=== PATIENT | male | born 1965 | race Caucasian/White ===

== ENCOUNTER 2020-05-18 10:20 | Day surgery (SDC) | payer OTHER, SELFPAY ==
--- NOTE | 2020-05-15 09:11 | EKG12_ITS ---
Test Reason : PREOP Blood Pressure : / mmHG Vent. Rate : 074 BPM Atrial Rate : 074 BPM P-R Int : 222 ms QRS Dur : 094 ms QT Int : 366 ms P-R-T Axes : 031 039 044 degrees QTc Int : 406 ms Sinus rhythm with 1st degree A-V block Otherwise normal ECG Confirmed by HUMBERTO ROACH, LINDA ([id number]), editorial project manager KSENIA XIAO ([id number]) on 05/19/2020 9:28:02 AM Referred By: Marcello Stevenson Confirmed By:LINDA PAUL MD
[2020-05-15 10:43] LABS: Hematocrit 46.6 % (40-54); Hemoglobin 15.7 g/dL (13.0-16.5); Mean Corp Hgb Conc 33.7 g/dL (32-36); Mean Corpuscular Hgb 31.8 pg (27.0-32.0); Mean Corpuscular Volume 94.5 fL (80-94); Mean Platelet Vol. 10.4 fl (6.2-12.0); Platelet Count 199 K/mm3 (150-450); RBC Distribution Width CV 11.9 % (11.6-14.6); RBC Distribution Width SD 41.1 fl (35.1-43.9); Red Blood Count 4.93 M/mm3 (4.6-6.2); White Blood Count 5.8 K/mm3 (4.4-11.0)
[2020-05-15 11:31] LABS: Anion Gap 4 (5-15); BUN 19 mg/dL (7-18); BUN/Creat Ratio 20.7 RATIO (10-20); Calcium,Total 9.1 mg/dL (8.5-10.1); Chloride 100 mmol/L (98-107); Creatinine, Serum 0.92 mg/dL (0.70-1.30); EST Glomerular Filtration Rate 92 mL/min (>60); Est Glom Filt Rate - Afr Amer 111 mL/min (>60); Glucose 127 mg/dL (74-106); Potassium 4.4 mmol/L (3.5-5.1); Sodium Level 134 mmol/L (136-145)
--- NOTE | 2020-05-18 10:09 | HP_ITS ---
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 Is patient in pain?: Yes Allergies No Known Allergies Allergy (Verified 05/13/20 09:44) Medications amlodipine 5 mg tablet 5 mg PO DAILY tab 05/13/20 [History Confirmed 05/13/20] aspirin 81 mg tablet,delayed release 81 mg PO DAILY 05/13/20 [History Confirmed 05/13/20] evolocumab 140 mg/mL subcutaneous syringe 140 mg SC ml 05/13/20 [History Confirmed 05/13/20] hydrochlorothiazide 25 mg tablet 25 mg PO DAILY tab 05/13/20 [History Confirmed 05/13/20] lisinopril 40 mg tablet 40 mg PO DAILY tab 05/13/20 [History Confirmed 05/13/20] [facility] Medical History (Updated 05/13/20 @ 09:48 by Radha Lin) CAD (coronary artery disease) (Acute) Hyperlipidemia (Acute) Back pain (Acute) Osteoarthritis (Acute) Myocardial infarction (Acute) HTN (hypertension) (Chronic) Hemorrhoids (Acute) GERD (gastroesophageal reflux disease) (Acute) Surgical History (Updated 05/13/20 @ 09:48 by Radha Lin) History of decompression of ulnar nerve (Acute) History of discectomy (Acute) History of vasectomy (Acute) History of colonoscopy (Acute ~2019) History of fusion of cervical spine (Acute) Hx of heart artery stent (Acute) Family History (Updated 05/13/20 @ 09:43 by Radha Lin) Father Heart disease Mother Colon cancer Social History (Updated 05/13/20 @ 10:[address] Marcello Stevenson MD) Smoking Status: Former smoker HPI HPI HPI: MERRILL IBARRA, is a 55 M who presents to the office today for HPI HPI Surgical H&P: Yes HPI: MERRILL IBARRA, is a 55 M who presents to the office today for Left groin swelling. Patient notes that he has been having a lot of left groin swelling over the past month. He said sometimes it is so painful to stand up that he has to sit down for 5 minutes. The swelling does disappear with laying down. He does not have any vomiting but he has been having nausea due to this. Pain does radiate into his left testicle ROS General General: Yes weight change; no appetite, fatigue, colon cancer, breast cancer or weakness HEENT HEENT: No difficulty swallowing, eye injury, eye surgery, swollen glands or hoarseness Endo Endocrine: No thyroid disease, diabetes mellitus, thyroid cancer, Hair loss, heat intolerance or cold intolerance Musc Musculoskeletal: Yes back problems and arthritis; no rheumatoid arthritis, gout or joint pain Cardio Cardiovascular: Yes heart disease, high blood pressure, heart attack and heart stent; no murmur, pacemaker, atrial fibrillation, palpitations, shortness of breat with exertion or chest pain Psych Psychiatric: No depression, anxiety or hearing voices Resp Respiratory: No shortness of breath, No sleep apnea, No cough, No COPD, No asthma, No emphysema, No wheezing Gastro Gastrointestinal: Yes abdominal pain, Yes nausea or vomiting, No diarrhea, No constipation, No blood in stool, Yes acid reflux, Yes hemorrhoids, No ulcers, No gallbladder problem, No black,tarry stools Mark Hematologic: No blood thinners, No blood disorders, No bleeding, No anemia, No blood clots Neuro Neurologic: No weakness Exam Const General: cooperative Orientation: alert, oriented x3 [facility] Head: normal to inspection Ears: hearing grossly normal bilaterally Eyes General: appearance normal, both eyes and all related structures Visual Montemayor: normal visual montemayor by confrontation Neck Neck: normal visual inspection Chest Chest palpation & inspection: normal inspection of the chest Resp Effort & Inspection: normal respiratory effort Auscultation: clear to auscultation bilaterally Cardio Rate: regular rate Rhythm: regular rhythm Heart Sounds: no murmurs GI Inspection: non-distended Palpation: soft, hernia indirect inguinal bilaterally, nontender Musc Cervical Spine: normal cervical lordosis, cervical ROM normal Skin General: no rashes or lesions noted Neuro General: alert, oriented x3 Cranial Nerves: CN's II-XI intact bilaterally Cognition: normal cognition Extrem General: normal to inspection, full ROM Psych Appearance: grossly normal Affect: normal affect Assessment & Plan Problems 1. Bilateral inguinal hernia without obstruction or gangrene, recurrence not specified K40.20 Plan The patient has a CT scan which reveals bilateral inguinal hernias with left larger than right. The patient is only symptomatic on the left but he would like the right repaired. I discussed open and robotic assisted laparoscopic inguinal hernia repair with mesh. I discussed repairing the left side first by repairing the symptomatic right side as well. I also discussed conversion to open procedure of laparoscopic was not possible due to his weight. I explained the risks including not limited to bleeding, infection, injury to spermatic cord or bowel, chronic groin pain and mesh placement. The patient understands the risks and is willing to proceed as soon as possible. We discussed the current risks associated with COVID-19. While it is understood that there is a community spread of COVID-19, the risk of baljinder COVID-19 while at [facility] ([facility]) is very low; however, the risk cannot be completely mitigated because of the community spread of the disease. We discussed in detail the risk of exposure to and/or potential harm posed by the COVID-19 virus with having a surgery/procedure at this time versus the risk of delaying the surgery/procedure. It is not possible to know either the risk of delaying the surgery or procedure or chance of getting an infection with perfect accuracy, but a joint decision was made to proceed at this time with the scheduled surgery/procedure as indicated on the consent form. Patient was notified that we will need to comply with any screening or testing [facility] wishes to perform or that surgery may be delayed for any positive results. Marcello Stevenson MD Pager: [facility] [address] [place] [address], [address] [place] [address] Office: Coding Level of Care Code Off vis,new,level 4 Diagnoses Bilateral inguinal hernia without obstruction or gangrene, recurrence not specified K40.20 ??Obstruction and gangrene presence: without obstruction or gangrene ??Recurrence: not specified as recurrent Time Spent (min) 45 I have re-examined the patient. There are no clinical changes since date of exam.
[2020-05-18 11:19] VITALS: BP 156/92; PULSE 87; RESP 16; TEMP 37.4; O2SAT 97; BMI 47.2
[2020-05-18] MEDS: Lactated Ringers 1,000 ML 75 ML IV (11:20)
[2020-05-18] MEDS: Cefazolin 2 GM in 0.9% Normal Saline 100 ML IV (11:41)
[2020-05-18] MEDS: Bupivacaine Mpf 0.5% 30 ML VIAL (14:00)
--- NOTE | 2020-05-18 14:18 | PCM.OPRPT ---
Problem List (1) Bilateral inguinal hernia Status: Acute Qualifiers: Obstruction and gangrene presence: without obstruction or gangrene Recurrence: non-recurrent Qualified Code(s): K40.20 - Bilateral inguinal hernia, without obstruction or gangrene, not specified as recurrent Report of Operation Date of Procedure: 05/18/20 Pre-Operative Diagnosis: Bilateral inguinal hernia Post-Operative Diagnosis: Same Surgery/Procedure Performed:: Robotic assisted laparoscopic bilateral inguinal hernia repair with mesh Description of Surgical Findings:: Patient had retroperitoneal fat in bilateral inguinal hernias Description of Procedure: Patient was brought back to the operating room and general anesthesia was induced. The abdomen was prepped and draped in usual sterile fashion. An incision was made the midline and Veress needle was placed into the abdomen and a drop test was performed. The abdomen was insufflated to 15 mmHg. The camera port was placed through the midline incision and the camera was placed in the abdomen and it was inspected. The patient had bilateral inguinal hernias. Next under direct visualization a right 8 mm port was placed in a left 8 mm port was placed. The robot was then docked and the patient was placed in steep Trendelenburg position. The left inguinal hernia was addressed first. The peritoneum was scored and the dissection was carried inferiorly using cautery scissors. The hernia sac was reduced and then the retroperitoneal contents in the inguinal canal were reduced. This took a long time and there were a lot of retroperitoneal contents in the inguinal canal. Once these were dissected free a progrip mesh was placed in the left inguinal canal and unfolded covering the inguinal canal fully. The peritoneum was reapproximated using a running 3-0V lock suture completely covering the mesh. Next on the right side in the same fashion the peritoneum was scored and dissected inferiorly until the hernia sac was identified. There was also retroperitoneal contents in the right inguinal hernia which were reduced. The progrip mesh was then placed over the right inguinal region and unfolded. This covered the hernia defect. The peritoneum was reapproximated using running 3-0V lock suture. The mesh was completely covered with peritoneum. Both inguinal regions were inspected and then the camera was removed and the robot was undocked. The ports were removed and the air was allowed to desufflate from the abdomen. The scrotum was checked and contain both testicles. The skin was then anesthetized and closed with interrupted 4-0 Monocryl sutures. Steri-Strips and bandages were applied. The patient was awoken and taken to PACU in stable condition. Grafts/Implants Used: Progrip mesh x2 - Admit VTE Documentation VTE Mechan Device Prophylaxis: SCD's
--- NOTE | 2020-05-18 14:24 | DCINST_ITS ---
Discharge Diet: Light diet - advance as tolerated Discharge Activity: Return to Normal Activity, May Not Drive - for 2-3 days or while taking narcotic pain meds., May Shower - with the bandage in place 1-2 days after surgery. Lifting Restrictions: 20 pounds for 6 weeks. Additional Activity Instructions:: Climbing stairs is fine, walking is encouraged. Sitting in bed may be uncomfortable. Sitting up using your lateral muscles (sitting up sideways) is usually more comfortable. Do not drive, work heavy equipment of sign legal documents for 24 hours. If your hernia repair was an ingunial repair, you may have scrotal swelling, an ice pack and/or athletic support can provide more comfort. Pain medications may cause nausea, you should typically eat light foods as you take your pain medications. Pain medications may also cause constipation. If you have difficulty with this, discuss with your doctor. Call your doctor if your incision/area has: Continuous Slow Oozing, Sudden Increased Bleeding, Increased Pain/ Swelling, Increased Redness, Foul Smelling Discharge Call your doctor if you observe: Fever of 101 or Higher Suture Line Care: Avoid Pulling/Pushing, Avoid Pinching/Bending Change Dressing in (Days):: 3 - Leave steri-strips for 1 week. May protect with a guaze bandaid. Cleanse incision/area with: Keep Dressing Clean & Dry Allergies/Adverse Reactions: Allergies No Known Allergies Allergy (Verified 05/18/20 11:15) Medications to take at Discharge amlodipine 5 mg tablet 5 mg PO DAILY tab 05/13/20 aspirin 81 mg tablet,delayed release 81 mg PO DAILY 05/13/20 evolocumab 140 mg/mL subcutaneous syringe 140 mg SC .[id number] ml 05/13/20 hydrochlorothiazide 25 mg tablet 25 mg PO DAILY tab 05/13/20 lisinopril 40 mg tablet 40 mg PO DAILY tab 05/13/20 Oxycodone HCl/Acetaminophen [Percocet 5-325 mg Tablet] 1 - 2 tab PO Q6H PRN PRN 5 Days #20 tablet 05/18/20 The following prescriptions were given: Oxycodone HCl/Acetaminophen [Percocet 5-325 mg Tablet] 1 - 2 tab PO Q6H PRN PRN 5 Days #20 tablet PRN Reason: Pain Score 4-10/10 Transmission Status: Sent to [facility] Primary Care Physician: Juana Cr, [Primary Care Provider] - Test Results: Test results from this visit will be discussed in further detail at your follow- up appointment, if applicable. Please Follow Up With: Marcello Stevenson MD When: Please call to schedule 2 week follow up appointment. [phone]
[2020-05-18 14:30] VITALS: BP 103/63; BP 156/92; PULSE 83; RESP 16; TEMP 36.2; O2SAT 92
[2020-05-18 14:45] VITALS: BP 156/92; BP 97/57; PULSE 81; RESP 16; O2SAT 95
[2020-05-18 15:00] VITALS: BP 101/65; BP 156/92; PULSE 81; RESP 16; O2SAT 92
[2020-05-18 15:06] VITALS: BP 102/62; BP 156/92; PULSE 81; RESP 16; TEMP 36.6; O2SAT 95
[2020-05-18] MEDS: oxyCODONE 5 MG Tablet 10 MG PO (16:20)
[2020-05-18 16:31] VITALS: BP 115/68; BP 156/92; PULSE 80; RESP 16; TEMP 36.6; O2SAT 93
== END 2020-05-18 16:35 | disposition home or self-care (01) ==
LOC: SDC 10:22 → AC 10:22
PROVIDERS: Anesthesiology; PCP Family Medicine; Referring Provider Surgery; Visit Provider Surgery
PROC: (CPT 49650; principal; 2020-05-18 11:35)
DX: K40.20 Bilateral inguinal hernia, without obstruction or gangrene, not specified as recurrent (principal); I25.10 Atherosclerotic heart disease of native coronary artery without angina pectoris; I10 Essential (primary) hypertension; E78.5 Hyperlipidemia, unspecified; K21.9 Gastro-esophageal reflux disease without esophagitis; I25.2 Old myocardial infarction; M19.90 Unspecified osteoarthritis, unspecified site; Z20.828 Contact with and (suspected) exposure to other viral communicable diseases; Z79.82 Long term (current) use of aspirin; Z87.891 Personal history of nicotine dependence; Z79.899 Other long term (current) drug therapy
CPT/HCPCS: 49650; 36415; 80048; 85027; 87426; 93005; C9803; J7120; J2405

== ENCOUNTER → 2020-12-16 06:41 | Outpatient (CLI) | payer OTHER, SELFPAY ==
[2020-12-09 09:46] VITALS: BMI 47.2
--- NOTE | 2020-12-16 06:43 | CT_ITS ---
STUDY: CT PELVIS WITHOUT CONTRAST REASON FOR EXAM: Male, 55 years old. Left inguinal pain RADIATION DOSAGE (If Supplied By Facility): CTDIvol = ( 39.04 ) mGy, DLP = ( 1952.09 ) mGycm TECHNIQUE: Transaxial imaging of the pelvis was performed with oral contrast, and without intravenous administration of contrast material. Individualized dose optimization techniques were used for this CT. COMPARISON: None. FINDINGS: Normal urinary bladder. Normal visualized small intestine. Normal visualized colon. There is no pelvic fluid. There is no pelvic mass lesion or lymphadenopathy. Normal visualized pelvic arteries. There is a left inguinal hernia containing fat. Normal osseous structures. CT/Pelvis without IV Contrast IMPRESSION: Moderate-sized left inguinal hernia containing fat with fat extending into the hemiscrotum. Electronically Signed: Reid Gilbert MD at 10:59 EDT Tel , Service support ,
== END ==
PROVIDERS: PCP Family Medicine; Referring Provider Surgery; Visit Provider Surgery
DX: R10.32 Left lower quadrant pain (principal)
CPT/HCPCS: 72192

== ENCOUNTER 2021-07-16 10:30 | Outpatient (CLI) | payer OTHER, SELFPAY ==
[2020-12-09 09:46] VITALS: BMI 47.2
== END 2021-07-16 23:59 | disposition short-term general hospital (02) ==
LOC: PAT 10:32 → EN 13:37
PROVIDERS: PCP Family Medicine; Visit Provider Surgery
DX: Z00.00 Encounter for general adult medical examination without abnormal findings (principal)